=== PATIENT | female | born 1990 | race African-American/Black ===

== ENCOUNTER 2022-12-09 03:40 | Inpatient (IN) | payer BC ==
[2022-12-09] MEDS: LACTATED RINGERS 1,000 ML IV SCH ×3 (04:53→19:07)
[2022-12-09 05:54] LABS: Basophils % (A) 0 %; Eosinophils # (A) 0.1 k/uL (0-0.7); Eosinophils % (A) 1 %; HCT 35.8 % (34.0-46.0); HGB 11.9 gm/dL (11.4-16.0); Lymphocytes # (A) 0.8 k/uL (1.0-4.8); Lymphocytes % (A) 10 %; MCH 29.5 pg (25.0-35.0); MCHC 33.3 g/dL (31.0-37.0); MCV 88.6 fL (80.0-100.0); Monocytes # (A) 0.6 k/uL (0-1.0); Monocytes % (A) 8 %; Neutrophils % (A) 79 %; Platelet Count 212 k/uL (150-450); RBC 4.04 m/uL (3.80-5.40); WBC 7.6 k/uL (3.8-10.6)
--- NOTE | 2022-12-09 08:53 | US ---
EXAMINATION TYPE: US OB limited DATE OF EXAM: 12/09/2022 COMPARISON: NONE CLINICAL HISTORY: Bleeding, placenta previa. Bleeding. Rule out previa. EXAM PERFORMED: Transabdominal (TA) GESTATIONAL AGE / DATING Physician Established: (25 weeks/3 days) EDC: 06/14/2023 No growth performed on today?s study per ordering physician SURVEY PLACENTA: Anterior and appears to lie over internal os PREVIA: Complete Ultrasound evidence of abruption? No evidence of abruption. ROMAN: 16.5 cm Normal Ultrasound evidence of premature rupture of membranes? No HEART RATE: 136 bpm RHYTHM: Normal IMPRESSION: 1. Single intrauterine gestation. Current gestational age not measured. 2. Cardiac activity measures 136 bpm. 3. ROMAN appears normal. 4. Placenta previa. No abruption by ultrasound.
[2022-12-09 09:28] VITALS: RESP 16
[2022-12-09] MEDS ORDERED: BETAMET ACET-BETAMETH SOD PHOS 6 MG/ML MDV IM SCH (14:15)
--- NOTE | 2022-12-09 14:39 | P.HPOB ---
History of Present Illness H&P Date: 12/09/22 Chief Complaint: IUP at 25 weeks, vaginal bleeding This is a 32-year-old 1 para 0 at 35 weeks of that presents with complaints of an episode of bleeding overnight. Patient states she awoke went to the bathroom and noted bright red bleeding in her underwear. Patient presented to labor and delivery. Patient has a known low-lying placenta that was diagnosed at her 20 week anatomy scan. Patient denies cramping, contractions she does note good movement. 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 Patient states she is feeling well denies shortness of breath or dizziness upon ambulation. Past Medical History Past Medical History: No Reported History History of Any Multi-Drug Resistant Organisms: None Reported Additional Past Surgical History / Comment(s): [place] teeth Past Anesthesia/Blood Transfusion Reactions: No Reported Reaction Past Psychological History: No Psychological Hx Reported Smoking Status: Never smoker Past Alcohol Use History: None Reported Past Drug Use History: None Reported - Past Family History Father History Unknown: Yes Medications and Allergies Home Medications Medication Instructions Recorded Confirmed Type Dextroamphetamine/Amphetamine 10 mg PO DAILY 12/09/22 12/09/22 History [Adderall] Pnv No.175/Iron Fum/Folic Acid 1 tablet PO DAILY 12/09/22 12/09/22 History [ Complete Tablet] Allergies Allergy/AdvReac Type Severity Reaction Status Date / Time No Known Allergies Allergy Verified 12/09/22 03:53 Exam Osteopathic Statement: *. No significant issues noted on an osteopathic structural exam other than those noted in the History and Physical/Consult. Vital Signs Temp Pulse Resp BP Pulse Ox 12/09/22 04:28 97.3 F L 84 18 111/66 99 12/09/22 04:01 97.3 F L 97 18 127/70 98 Intake and Output 12/08/22 12/09/22 12/09/22 22:59 06:59 14:59 Other: # Voids 1 Weight 65.317 kg Targeted physical exam is performed and state and superintendent production a well-nourished well-developed female in no acute distress, breathing is nonlabored, heart has a regular rate and rhythm, abdomen is gravid, cervical exam is deferred given active bleeding with known low-lying placenta. heart tones are noted to be category 1 and appropriate for gestational age, no uterine activity is appreciated on toco Results Result Diagrams: 12/09/22 04:47 Abnormal Lab Results - Last 24 Hours (Table) 12/09/22 Range/Units 04:47 Lymphocytes # 0.8 L (1.0-4.8) k/uL Assessment and Plan (1) 25 to 26 weeks gestation of Current Visit: Yes Status: Acute Code(s): YYR3420 - SNOMED Code(s): 233228033 (2) Vaginal bleeding during Current Visit: Yes Status: Acute Code(s): O46.90 - ANTEPARTUM HEMORRHAGE, UNSPECIFIED, UNSPECIFIED TRIMESTER SNOMED Code(s): 95714667986773900 (3) Low lying placenta with hemorrhage, second trimester Current Visit: Yes Status: Acute Code(s): O44.52 - LOW LYING PLACENTA WITH HEMORRHAGE, SECOND TRIMESTER SNOMED Code(s): 798209663 Plan: 32-year-old at 25 weeks of gestation presented last evening with complaints of vaginal bleeding. Ultrasound was completed this morning for evaluation of placental location amniotic fluid index and estimated weight. Patient has had scant bleeding overnight. And is stable. We'll continue close observation. Await ultrasound results.
--- NOTE | 2022-12-09 14:46 | P.PN ---
Progress Note - Text Progress Note Date: 12/09/22 32 yo at 25 weeks of gestation with known complete placenta previa, that presented last evening with complaints of vaginal bleeding. She states she woke up to a feeling of wetness and upon going to the bathroom she noted bleeding in her underwear. She then presented to labor and delivery. No active bleeding was appreciated. Vital signs were noted to be stable. Patient was admitted for overnight observation. Patient has continued to have small amount of bright red bleeding throughout the day. Case was reviewed with Dr. Nam ([facility]), recommendations for continued observation at [facility]. Patient continues to be without complaints, she denies cramping or contractions. heart tones are noted to be reassuring for gestational age. Patient has received 1 dose of betamethasone Blood type is A+ Assessment IUP at 35 weeks of gestation, based on 13 week ultrasound consistent with 20 week ultrasound Complete placenta previa Vaginal bleeding Plan Transfer to [facility], [facility] Betamethasone to be given prior to transfer Case is reviewed with Dr. Zuñiga at [facility] and is accepting the transfer
[2022-12-09 15:30] VITALS: BP 120/68; PULSE 87; TEMP 97.6
== END 2022-12-09 19:20 | disposition short-term general hospital (02) | DRG 833 ==
LOC: FBPOP 03:40 → 4FBP 04:16
PROVIDERS: ADMIT Obstetrics & Gynecology Obstetrics; ATTEND Obstetrics & Gynecology Obstetrics
DX: O44.13 Complete placenta previa with hemorrhage, third trimester (principal); Z3A.35 35 weeks gestation of pregnancy; Z79.899 Other long term (current) drug therapy
CPT/HCPCS: 76815; 85025; 99215

== ENCOUNTER 2023-02-25 08:19 | Inpatient (IN) | payer BC, OTHER ==
[2023-02-23 11:47] VITALS: BMI 29.1
[2023-02-25] MEDS ORDERED: CITRIC ACID-SODIUM CITRATE 15 ML CUP PO ONE (08:36)
[2023-02-25] MEDS ORDERED: LACTATED RINGERS 1,000 ML IV ONE (08:36)
[2023-02-25] MEDS ORDERED: OXYTOCIN 10 UNIT/ML 1 ML VIAL IM PRN (08:36)
[2023-02-25] MEDS ORDERED: METHYLERGONOVINE 0.2 MG/ML 1 ML AMP IM PRN (08:36)
[2023-02-25] MEDS ORDERED: miSOPROStoL 200 MCG TAB PO PRN (08:36)
[2023-02-25] MEDS ORDERED: TRANEXAMIC 1,000 MG/100ML-NACL 1,000 MG in EMPTY BAG 1 BAG IV PRN (08:36)
[2023-02-25] MEDS ORDERED: CARBOPROST TROMETHAMINE 250 MCG/ML 1 ML AMP IM PRN (08:36)
[2023-02-25 09:00] LABS: Basophils % (A) 0 %; Eosinophils # (A) 0.1 k/uL (0-0.7); Eosinophils % (A) 1 %; HCT 38.3 % (34.0-46.0); HGB 12.8 gm/dL (11.4-16.0); Lymphocytes # (A) 0.9 k/uL (1.0-4.8); Lymphocytes % (A) 12 %; MCH 29.7 pg (25.0-35.0); MCHC 33.4 g/dL (31.0-37.0); MCV 88.9 fL (80.0-100.0); Mean Platelet Volume 7.8; Monocytes # (A) 0.5 k/uL (0-1.0); Monocytes % (A) 7 %; Neutrophils # (A) 5.6 k/uL (1.3-7.7); Neutrophils % (A) 79 %; Platelet Count 230 k/uL (150-450); RDW 13.8 % (11.5-15.5); WBC 7.1 k/uL (3.8-10.6)
[2023-02-25] MEDS: LACTATED RINGERS 1,000 ML IV SCH ×4 (09:17→20:36)
[2023-02-25] MEDS ORDERED: ONDANSETRON 4 MG/2 ML VIAL ONE (10:10)
[2023-02-25] MEDS ORDERED: MORPHINE SULFATE (PF) 0.3 MG/0.3 ML SYR ONE (10:10)
[2023-02-25] MEDS ORDERED: OXYTOCIN 30 UNITS/500 ML NS BAG IV ONE (10:10)
--- NOTE | 2023-02-25 11:11 | P.OP ---
Date of Procedure: 02/25/23 Preoperative Diagnosis: IUP @ 36 6/7 weeks, complete previa Postoperative Diagnosis: same plus transverse converted to breech presentation. Procedure(s) Performed: Primary low transverse section Anesthesia: spinal Surgeon: Julissa Ko Doll Repairer #1: Genaro Garcia Estimated Blood Loss (ml): 360 IV fluids (ml): 1,000 Urine output (ml): 150 (clear yellow) Pathology: other (placenta) Condition: stable Disposition: observation Indications for Procedure: 32-year-old with known complete previa. Operative Findings: Complete previa noted anterior and posterior uterine wall, viable female infant delivered at 1034, weight of 7 lbs. 0 oz. initially transverse presentation converted to breech for delivery. Description of Procedure: Patient was taken back to the operating suite where spinal anesthesia was found be adequate. She was prepped and draped in normal sterile fashion in the dorsal supine position. A Pfannenstiel skin incision was made the scalpel and carried through to the underlying layer of fascia. The fascia was incised in the midline and the incision was extended laterally. The superior aspect the fascial incision was then grasped with Winslow clamps, elevated and underlying rectus muscles dissected off sharply. The inferior aspect of the fascial incision was then grasped renee clamps, elevated and underlying rectus muscle was dissected off sharply. The rectus muscles were in the midline the peritoneum was identified and entered. The vesicouterine peritoneum was noted and the bladder flap was created using sharp and blunt dissection. The lower uterine segment was noted to be quite vascular with sinuses. The bladder blade was inserted to remove the bladder away from the operating field. Hysterotomy incision was made with the scalpel the placenta was encountered amniotomy was performed clear fluid was obtained. The infant was noted to be in a transverse presentation the sacrum was noted, and the was delivered in a standard breech fashion. The apical cord was doubly clamped and cut the infant was handed to awaiting RN. Patient did have a cord blood kit which was then used. A moderate amount of cord blood was obtained. The placenta was delivered manually and the uterus was externalized and cleared of all clots and debris. Uterus was noted to be firm at this time. The uterine incision was closed with 0 Vicryl in a running locked fashion. A second inverting suture was used to obtain hemostasis. On the right lateral uterine incision a small lung bleeding was noted therefore a [id number]-qp-wutan suture was used to obtain hemostasis. Small hematoma was noted and not increasing in size. The uterus then returned to the abdomen and the gutters were cleared of all clots and debris. Uterine incision was inspected hemostasis was noted Surgicel powder was placed along the hysterotomy incision. The peritoneum was loosely reapproximated. The rectus muscles were inspected and any points of bleeding were made hemostatic with the Bovie. The fascia was then closed with 0 Vicryl in a running fashion from one lateral edge the midline and the other lateral edge the midline. The subcutaneous tissue was irrigated found to be hemostatic. The skin was closed with 4-0 Vicryl in a circular fashion. Steri-Strips and sterile dressings were applied. The uterus was noted be firm and below the umbilicus. The Starr remains draining clear yellow urine. All counts were noted to be correct 2 at the end of the delivery. Patient and tolerated delivery well and are resting comfortably.
--- NOTE | 2023-02-25 11:12 | P.HPOB ---
History of Present Illness H&P Date: 02/25/23 Chief Complaint: IUP at 36-6/7 weeks, complete placenta previa This is a 32-year-old at 36-6/7 weeks that presents to labor and delivery for scheduled primary secondary to complete placenta previa. Patient has been receiving routine care with myself which is been complicated by complete previa. Patient did see maternal medicine medicine who recommended delivery from 36-37 weeks. Patient did receive betamethasone at 24 weeks secondary to an initial episode of vaginal bleeding. Patient has had multiple growth ultrasounds revealing a suggested large for gestational age infant. Patient notes good movement denies vaginal bleeding loss of fluid or contractions. On bloodwork this patient's blood type of A+, rubella status immune, hep Makenzie surface antigen negative, HIV negative, RPR is nonreactive. Review of Systems Constitutional: Denies chills, Denies fatigue, Denies fever Ears, nose, mouth and throat: Denies headache Cardiovascular: Denies leg edema Respiratory: Denies dyspnea Gastrointestinal: Denies constipation, Denies diarrhea, Denies nausea, Denies vomiting Genitourinary: Reports Past Medical History Past Medical History: No Reported History Additional Past Medical History / Comment(s): COMPLETE PLACENTA PREVIA History of Any Multi-Drug Resistant Organisms: None Reported Additional Past Surgical History / Comment(s): [place] teeth Past Anesthesia/Blood Transfusion Reactions: No Reported Reaction Past Psychological History: Anxiety, Depression Smoking Status: Never smoker Past Alcohol Use History: None Reported, Occasional Additional Past Alcohol Use History / Comment(s): NONE DURING Past Drug Use History: None Reported - Past Family History Father History Unknown: Yes Medications and Allergies Home Medications Medication Instructions Recorded Confirmed Type Pnv No.175/Iron Fum/Folic Acid 1 tablet PO DAILY 12/09/22 02/25/23 History [ Complete Tablet] Sertraline [Zoloft] 50 mg PO DAILY 02/23/23 02/25/23 History Allergies Allergy/AdvReac Type Severity Reaction Status Date / Time No Known Allergies Allergy Verified 02/25/23 08:36 Exam Osteopathic Statement: *. No significant issues noted on an osteopathic structural exam other than those noted in the History and Physical/Consult. Vital Signs Temp Pulse Resp BP Pulse Ox 02/25/23 08:59 97.1 F L 82 16 117/75 98 Intake and Output 02/24/23 02/25/23 02/25/23 22:59 06:59 14:59 Other: Weight 79.379 kg Targeted physical exam is performed and state in general this a well-nourished well-developed female in no acute distress, breathing is nonlabored, heart has regular rate and rhythm, abdomen is gravid and appropriate for gestational age, cervical exam is deferred, heart tones noted to be category 1 and uterine irritability is noted the monitor. Results Result Diagrams: 02/25/23 08:50 Abnormal Lab Results - Last 24 Hours (Table) 02/25/23 Range/Units 08:50 Lymphocytes # 0.9 L (1.0-4.8) k/uL Assessment and Plan (1) 36 to 37 weeks gestation of Current Visit: Yes Status: Acute Code(s): EHW1424 - SNOMED Code(s): 835059474 (2) Complete placenta previa nos or without hemorrhage, third trimester Current Visit: Yes Status: Acute Code(s): O44.03 - COMPLETE PLACENTA PREVIA NOS OR WITHOUT HEMOR, THIRD TRI SNOMED Code(s): 4131055 Plan: 32-year-old at 36-6/7 weeks that presents for primary secondary to complete previa. is reviewed in detail all questions are answered. Risks are reviewed including not limited to infection, bleeding, damage to bladder, bowel, or ureteric injury. Patient states understanding. We'll proceed with primary .
[2023-02-25] MEDS ORDERED: ONDANSETRON 4 MG/2 ML VIAL IVP PRN (13:29)
[2023-02-25] MEDS ORDERED: OXYTOCIN 30 UNITS/500 ML NS 30 UNIT in SALINE 1 500ML.BAG IV SCH (13:29)
[2023-02-25] MEDS ORDERED: diphenhydrAMINE 25 MG CAP PO PRN (13:29)
[2023-02-25] MEDS ORDERED: ZOLPIDEM 5 MG TAB PO PRN (13:29)
[2023-02-25] MEDS ORDERED: NALOXONE 0.4 MG/ML 1 ML VIAL IV PRN (13:29)
[2023-02-25] MEDS ORDERED: METOCLOPRAMIDE 5 MG/ML 2 ML VIAL IVP PRN (13:29)
[2023-02-25] MEDS ORDERED: SIMETHICONE 80 MG CHEWABLE PO PRN (13:29)
[2023-02-25] MEDS ORDERED: diphenhydrAMINE 50 MG/ML 1 ML VIAL IVP PRN ×2 (13:29)
[2023-02-25] MEDS ORDERED: diphenhydrAMINE 50 MG CAP PO PRN (13:29)
[2023-02-25] MEDS: ACETAMINOPHEN IV (For NPO) 1,000 MG in EMPTY BAG 1 BAG IVPB SCH ×2 (13:35→19:20)
[2023-02-25] MEDS: ACETAMINOPHEN TAB 500 MG TAB PO SCH ×2 (13:37→19:44)
--- NOTE | 2023-02-25 13:37 | P.ANPRN ---
Procedure Note - Anesthesia - Epidural/Spinal Spinal Time Out Performed: Yes Date of Procedure: 02/25/23 Location of Patient: OB Indication: Acute Post-Operative Pain, Requested by Surgeon Sedation Type: Sedate with meaningful contact maintained Preparation: Sterile Prep Position: Sitting Needle Guage: 25 Blood Aspirated: No Pain Paresthesia on Injection Noted: No Events: Uneventful and Well Tolerated (300 MCG of PF Morphine mixed with 1.4 ml of 0.75% Marcaine heavy)
[2023-02-25] MEDS: IBUPROFEN IV 800 MG in SODIUM CHLORIDE 0.9% 250 ML IV SCH (16:46)
[2023-02-25] MEDS: IBUPROFEN 600 MG TAB PO SCH ×2 (16:47→23:41)
[2023-02-25] MEDS: SENNOSIDES-DOCUSATE SODIUM 1 EACH TAB PO SCH (19:56)
[2023-02-26] MEDS: IBUPROFEN IV 800 MG in SODIUM CHLORIDE 0.9% 250 ML IV SCH ×2 (00:52→06:42)
[2023-02-26] MEDS: ACETAMINOPHEN TAB 500 MG TAB PO SCH ×4 (03:49→23:00)
[2023-02-26] MEDS: IBUPROFEN 600 MG TAB PO SCH ×3 (06:33→19:56)
[2023-02-26] MEDS: LACTATED RINGERS 1,000 ML IV SCH (06:41)
[2023-02-26 07:43] LABS: Basophils % (A) 0 %; Eosinophils # (A) 0.1 k/uL (0-0.7); Eosinophils % (A) 1 %; HCT 36.6 % (34.0-46.0); HGB 12.2 gm/dL (11.4-16.0); Lymphocytes # (A) 0.8 k/uL (1.0-4.8); Lymphocytes % (A) 6 %; MCH 30.1 pg (25.0-35.0); MCHC 33.3 g/dL (31.0-37.0); MCV 90.5 fL (80.0-100.0); Mean Platelet Volume 8.2; Monocytes # (A) 0.7 k/uL (0-1.0); Monocytes % (A) 5 %; Neutrophils # (A) 11.5 k/uL (1.3-7.7); Neutrophils % (A) 87 %; Platelet Count 152 k/uL (150-450); RBC 4.04 m/uL (3.80-5.40); RDW 13.7 % (11.5-15.5); WBC 13.1 k/uL (3.8-10.6)
[2023-02-26] MEDS ORDERED: SERTRALINE 50 MG TAB PO SCH (09:00)
--- NOTE | 2023-02-26 11:23 | P.PNOBGPC ---
Subjective - Subjective Patient reports: Reports appetite normal, Reports voiding normally, Reports pain well controlled, Reports ambulating normally : doing well Objective - Vital Signs Latest vital signs: Vital Signs Temp Pulse Resp BP Pulse Ox 02/26/23 08:00 97.8 F 85 14 108/68 02/26/23 03:52 98.0 F 81 16 110/69 97 02/26/23 00:00 97.6 F 78 16 107/67 98 02/25/23 20:00 97.6 F 82 16 112/64 95 02/25/23 15:33 98.2 F 90 16 107/65 98 02/25/23 13:06 65 16 105/64 98 02/25/23 12:36 71 16 101/59 99 02/25/23 12:06 72 16 106/62 99 02/25/23 11:51 76 16 101/62 69 L 02/25/23 11:36 66 16 111/59 98 Intake and Output 02/25/23 02/26/23 02/26/23 22:59 06:59 14:59 Output Total 600 400 Balance -600 -400 Output: Urine 600 400 Uretheral (Starr) 600 Other: Voiding Method Indwelling Catheter # Voids 1 - Exam Extremities: Present: normal Abdomen: Present: normal appearance, soft. Absent: distention, tenderness Incision: Present: normal, dry, intact Uterus: Present: normal, firm (The uterine fundus is tonic inappropriately tender below the umbilicus.) - Labs Labs: Abnormal Lab Results - Last 24 Hours (Table) 02/26/23 Range/Units 07:10 WBC 13.1 H (3.8-10.6) k/uL Neutrophils # 11.5 H (1.3-7.7) k/uL Lymphocytes # 0.8 L (1.0-4.8) k/uL Assessment and Plan (1) Status post section Current Visit: Yes Status: Acute Code(s): Z98.891 - HISTORY OF UTERINE SCAR FROM PREVIOUS SURGERY SNOMED Code(s): 184909528 Plan: Continue routine and postoperative care. I have encouraged the patient to ambulate in the hallways routinely. I would anticipate discharge home tomorrow pending no complications.
[2023-02-26] MEDS: SENNOSIDES-DOCUSATE SODIUM 1 EACH TAB PO SCH ×2 (16:03→21:06)
[2023-02-26] MEDS: PRENATAL VIT-IRON-FOLIC ACID 1 EACH TABLET PO SCH (19:59)
[2023-02-27] MEDS: IBUPROFEN 600 MG TAB PO SCH ×2 (05:05→10:31)
[2023-02-27] MEDS: ACETAMINOPHEN TAB 500 MG TAB PO SCH (07:23)
--- NOTE | 2023-02-27 07:42 | P.DS ---
Providers Date of admission: 02/25/23 08:19 Expected date of discharge: 02/27/23 Attending physician: Julissa Ko Primary care physician: Stated None - Discharge Diagnosis(es) (1) Status post section Current Visit: Yes Status: Acute (2) Complete placenta previa nos or without hemorrhage, third trimester Current Visit: Yes Status: Acute Hospital Course: The patient is a 32-year-old 3 para 1011 admitted at 36-6/7 weeks by good dating parameters. She is admitted for a primary low-transverse section secondary to a diagnosis of complete placenta previa. Her was otherwise uncomplicated though she did have several episodes of bleeding during the . She received betamethasone in standard fashion at 24 weeks initially. On labor and delivery, all signs were reassuring with category 1 heart rate tracing. She was taken to the operating room where she was delivered by primary low transverse section of a viable 7 lbs. 0 oz. baby girl with Apgars of 5 at 1 minute, 9 at 5 minutes and 9 at 10 minutes. Her postoperative course was unremarkable with vital signs being stable and her temperature was afebrile throughout. She was deemed stable for discharge on post operative day #2 was discharged home to follow-up in the office in 2 weeks' time for incision check and 6 weeks time routinely. Discharge instructions included calling for any significantly increased bleeding or foul-smelling lochia, significantly increased fever abdominal pain, perineal complaints, breast complaints, incisional complaints, or anything else that concerned her. She was additionally instructed to have nothing in the vagina for at least 6 weeks time to include intercourse and to do no heavy lifting over the same period of time. She is lastly instructed to do no driving until off of all pain medications or 2 weeks' time, whichever came first. She understood her instructions and agrees to follow up as noted above. Discharge medications included continued [id number] analgesic pain medications as well as a vitamin as she is opted to breast-feed. She was provided a prescription for [place] 5/325 mg, 1-2 by mouth every 6 hours when necessary pain, #20 dispensed with no refills. Maternal blood type is A+ and rubella status is immune. Discharge hemoglobin and hematocrit were 12.2 and 36.6 respectively. Procedures: #1. Primary low-transverse section Patient Condition at Discharge: Stable Plan - Discharge Summary Discharge Rx Participant: Yes New Discharge Prescriptions: No Action Pnv No.175/Iron Fum/Folic Acid [ Complete Tablet] 1 tablet PO DAILY Sertraline [Zoloft] 50 mg PO DAILY Discharge Medication List Pnv No.175/Iron Fum/Folic Acid [ Complete Tablet] 1 tablet PO DAILY 12/09/22 [History] Sertraline [Zoloft] 50 mg PO DAILY 02/23/23 [History] Follow up Appointment(s)/Referral(s): Julissa Ko DO [Doctor of Osteopathic Medicine] - 2 Weeks Discharge Disposition: HOME SELF-CARE
[2023-02-27] MEDS: PRENATAL VIT-IRON-FOLIC ACID 1 EACH TABLET PO SCH (08:32)
[2023-02-27] MEDS: SENNOSIDES-DOCUSATE SODIUM 1 EACH TAB PO SCH (08:32)
[2023-02-27 08:47] VITALS: BP 114/72; PULSE 79; RESP 16; TEMP 98
== END 2023-02-27 11:14 | disposition home or self-care (01) | DRG 788 ==
LOC: 4FBP 08:19
PROVIDERS: ADMIT Obstetrics & Gynecology Obstetrics; ATTEND Obstetrics & Gynecology Obstetrics
PROC: 10D00Z1 Extraction of Products of Conception, Low, Open Approach (ICD-10-PCS; principal; 2023-02-25 10:00)
DX: O44.03 Complete placenta previa NOS or without hemorrhage, third trimester (principal); O32.1XX0 Maternal care for breech presentation, not applicable or unspecified; F41.9 Anxiety disorder, unspecified; F32.A Depression, unspecified; O99.344 Other mental disorders complicating childbirth; Z37.0 Single live birth; Z3A.37 37 weeks gestation of pregnancy; Z79.899 Other long term (current) drug therapy
CPT/HCPCS: 85025; 86850; 86900; 86901

== ENCOUNTER 2024-09-25 06:53 | Inpatient (IN) | payer BC, OTHER ==
[2024-09-25] MEDS ORDERED: CARBOPROST TROMETHAMINE 250 MCG/ML 1 ML AMP IM PRN (07:24)
[2024-09-25] MEDS ORDERED: miSOPROStoL 200 MCG TAB PO PRN (07:24)
[2024-09-25] MEDS ORDERED: TRANEXAMIC 1,000 MG/100ML-NACL 1,000 MG in EMPTY BAG 1 BAG IV PRN (07:24)
[2024-09-25] MEDS ORDERED: OXYTOCIN 10 UNIT/ML 1 ML VIAL IM PRN (07:24)
[2024-09-25] MEDS ORDERED: TERBUTALINE 1 MG/ML VIAL SQ PRN (07:24)
[2024-09-25] MEDS ORDERED: METHYLERGONOVINE 0.2 MG/ML 1 ML AMP IM PRN (07:24)
[2024-09-25] MEDS ORDERED: miSOPROStoL 200 MCG TAB RECTAL PRN (07:24)
[2024-09-25] MEDS: LACTATED RINGERS 1,000 ML IV SCH (07:43)
[2024-09-25 07:53] LABS: Basophils % (A) 0 %; Eosinophils # (A) 0.1 k/uL (0-0.7); Eosinophils % (A) 2 %; HCT 40.1 % (34.0-46.0); HGB 13.4 gm/dL (11.4-16.0); Lymphocytes # (A) 1.1 k/uL (1.0-4.8); Lymphocytes % (A) 15 %; MCH 29.2 pg (25.0-35.0); MCHC 33.3 g/dL (31.0-37.0); MCV 87.6 fL (80.0-100.0); Mean Platelet Volume 8.5; Monocytes # (A) 0.5 k/uL (0-1.0); Monocytes % (A) 7 %; Neutrophils # (A) 5.7 k/uL (1.3-7.7); Neutrophils % (A) 75 %; Platelet Count 221 k/uL (150-450); RBC 4.58 m/uL (3.80-5.40); RDW 14.4 % (11.5-15.5); WBC 7.6 k/uL (3.8-10.6)
[2024-09-25] MEDS: OXYTOCIN 30 UNITS/500 ML NS 30 UNIT in SALINE 1 500ML.BAG IV SCH (09:16)
[2024-09-25] MEDS ORDERED: ROPIVACAINE 5 MG/ML 30 ML VIAL ONE (11:32)
[2024-09-25] MEDS ORDERED: SODIUM CHLORIDE 0.9% 250 ML BAG ONE (11:32)
[2024-09-25] MEDS ORDERED: fentaNYL (PF) 50 MCG/ML 5 ML AMP ONE (11:32)
[2024-09-25] MEDS ORDERED: diphenhydrAMINE 25 MG CAP PO PRN (14:29)
[2024-09-25] MEDS ORDERED: LANOLIN CREAM 1 GM TUBE TOPICAL PRN (14:29)
[2024-09-25] MEDS ORDERED: BENZOCAINE/MENTHOL SPRAY 1 GM/SPRAY AEROSOL TOPICAL PRN (14:29)
[2024-09-25] MEDS ORDERED: ZOLPIDEM 5 MG TAB PO PRN (14:29)
[2024-09-25] MEDS ORDERED: diphenhydrAMINE 50 MG CAP PO PRN (14:29)
[2024-09-25] MEDS ORDERED: SIMETHICONE 80 MG CHEWABLE PO PRN (14:29)
[2024-09-25] MEDS ORDERED: diphenhydrAMINE 50 MG/ML 1 ML VIAL IVP PRN ×2 (14:29)
[2024-09-25] MEDS ORDERED: HYDROCORTISONE 2.5% RECTAL CREAM 30 GM TUBE RECTAL PRN (14:29)
[2024-09-25] MEDS ORDERED: OXYTOCIN 30 UNITS/500 ML NS 30 UNIT in SALINE 1 500ML.BAG IV SCH (14:30)
[2024-09-25] MEDS: LIDOCAINE 0.5% (PF) 5 MG/ML (50 ML SDV) SQ PRN (14:32)
--- NOTE | 2024-09-25 14:33 | P.PROBDLV ---
Vaginal Delivery Note - . Vaginal Delivery Note: 34-year-old 4 para 2-0-1-2 that presented to labor and delivery for spontaneous rupture of membranes approximately 550 this morning. Patient has been receiving routine care which has been essentially uncomplicated. Patient has a prior history of a primary section secondary to placenta previa. Patient does desire trial of labor after . Patient has a history of with her first delivery of a spontaneous vaginal delivery. Patient was admitted to labor and delivery spontaneous rupture of membranes was confirmed. Pitocin augmentation of labor was begun. Patient did become uncomfortable and request epidural. Epidural was placed without difficulty by the anesthesia department. Patient had minimal relief of her discomfort from epidural. Patient made good progress toward complete. With excellent maternal effort patient began pushing and had a normal spontaneous vaginal delivery of a viable male at 1414, weight of 6 pounds 14 ounces Apgars of 9 and 9 at 1 and 5 minutes respectively. Umbilical cord was doubly clamped and cut. Cord blood banking kit was then opened and cord blood was obtained. Once the cord was noted to obed the needle was removed and cord blood was taken off of the field. Placenta was delivered spontaneously intact. This was noted to be firm and below the umbilicus. Inspection the patient's vaginal vault a right lateral vaginal laceration was appreciated this was injected with lidocaine and repaired with a dqklut-zs-pkmns suture of 3-0 Rapide. Hemostasis was noted after repair. A red rubber catheter was used to drain the bladder of approximately 100 cc of clear yellow urine. All counts were noted to be correct x 2. Patient and infant tolerated delivery well and are resting comfortably.
--- NOTE | 2024-09-25 14:33 | P.HPOB ---
History of Present Illness H&P Date: 09/25/24 Chief Complaint: IUP at 40 and 1 sevenths weeks, spontaneous rupture of memb shashi This is a 34-year-old 4 para 1-1-1-2 at 40 and 1 sevenths weeks that presents to labor and delivery with complaints of spontaneous rupture of membranes. Patient states her water broke around 5 AM. Patient states it was clear in nature. Patient has been receiving routine care which has been essentially uncomplicated. Patient has a history of 1 vaginal delivery, 1 section at term secondary to placenta previa, current Patient notes good movement, denies vaginal bleeding. Last ultrasound revealing and a estimated weight of 7 pounds 3 ounces On blood work this patient is a blood type of A+, rubella status immune, hepatitis B surface engine negative, HIV negative, RPR is nonreactive, hepatitis C is negative, grew beta strep cultures negative. Review of Systems Constitutional: Denies chills, Denies fatigue, Denies fever Ears, nose, mouth and throat: Denies headache Cardiovascular: Reports leg edema Respiratory: Denies dyspnea Gastrointestinal: Denies nausea, Denies vomiting Genitourinary: Reports Past Medical History Past Medical History: No Reported History Additional Past Medical History / Comment(s): COMPLETE PLACENTA PREVIA with previous History of Any Multi-Drug Resistant Organisms: None Reported Past Surgical History: Section Additional Past Surgical History / Comment(s): [place] teeth Past Anesthesia/Blood Transfusion Reactions: No Reported Reaction Past Psychological History: Anxiety, Depression Smoking Status: Never smoker Past Alcohol Use History: None Reported, Occasional Additional Past Alcohol Use History / Comment(s): NONE DURING Past Drug Use History: None Reported - Past Family History Father History Unknown: Yes Medications and Allergies Home Medications Medication Instructions Recorded Confirmed Type Pnv No.175/Iron Fum/Folic Acid 1 tablet PO DAILY 12/09/22 09/25/24 History [ Complete Tablet] Allergies Allergy/AdvReac Type Severity Reaction Status Date / Time No Known Allergies Allergy Verified 09/25/24 07:15 Exam Osteopathic Statement: *. No significant issues noted on an osteopathic structural exam other than those noted in the History and Physical/Consult. Intake and Output 09/24/24 09/25/24 09/25/24 22:59 06:59 14:59 Other: Weight 80.739 kg Targeted physical exam is performed this date in general this is a well- nourished well-developed female in no acute distress, breathing is noted to be unlabored, heart has a right great rhythm, abdomen is gravid, on cervical exam she is 2/50/-2 station, spontaneous rupture of membranes was confirmed with positive AmniSure. heart tones noted be category 1, contractions are irregular. Results Result Diagrams: 09/25/24 07:40 Assessment and Plan (1) Post-dates Current Visit: Yes Status: Acute Code(s): O48.0 - POST-TERM SNOMED Code(s): 02007689 (2) Desires vaginal after trial Current Visit: Yes Status: Acute Code(s): O34.219 - MATERNAL CARE FOR UNSP TYPE SCAR FROM PREVIOUS DEL SNOMED Code(s): 243051290 (3) Spontaneous rupture of membranes Current Visit: Yes Status: Acute Code(s): ILL9933 - SNOMED Code(s): 078336126 Plan: 34-year-old -1-1-2 at 40 and 1 sevenths weeks that presented with complaints of spontaneous rupture of membranes. Patient is counseled on m entation of labor with Pitocin. epidural when appropriate.
[2024-09-25] MEDS: IBUPROFEN 800 MG TAB PO SCH (16:01)
[2024-09-25] MEDS: SENNOSIDES-DOCUSATE SODIUM 1 EACH TAB PO SCH (19:49)
[2024-09-25] MEDS: ACETAMINOPHEN TAB 500 MG TAB PO SCH (19:59)
[2024-09-26 12:37] VITALS: RESP 19
--- NOTE | 2024-09-26 12:51 | P.DS ---
Providers Date of admission: 09/25/24 07:14 Expected date of discharge: 09/26/24 Attending physician: Julissa Ko Primary care physician: Stated None - Discharge Diagnosis(es) (1) Post-dates Current Visit: Yes Status: Acute (2) Desires vaginal after trial Current Visit: Yes Status: Acute (3) Spontaneous rupture of membranes Current Visit: Yes Status: Acute Hospital Course: 34-year-old 4 now para 3-0-1-3 that presented to labor and delivery with spontaneous rupture of membranes around 550 on 128. Patient had been receiving routine care which has been essentially uncomplicated. Patient does have a history of a primary with her last secondary to placenta previa. First delivery was a spontaneous vaginal delivery and she desires trial of labor after . Patient was admitted to labor and delivery spontaneous rupture of membranes was confirmed. Pitocin augmentation of labor was begun. Patient did become uncomfortable and request epidural. Epidural was placed without difficulty by the anesthesia department. Patient made good progress toward complete dilation. Once completely dilated patient pushed through category 2 heart tones and had a normal spontaneous vaginal delivery of a viable male infant at 1414, weight of 6 pounds 14 ounces. Loose nuchal was noted and reduced on the perineum. Cord blood banking kit was compl eted. Right lateral vaginal laceration was appreciated after delivery this was repaired with 3-0 Rapide in a [id number]-[id number] fashion. Patient's course has been uneventful. In this day #1 she is ambulating voiding without difficulty. She is tolerating a regular diet without nausea or vomiting. States her pain is well-controlled. She denies concerns and would like discharge home at 24 hours. Patient Condition at Discharge: Good Plan - Discharge Summary New Discharge Prescriptions: No Action Pnv No.175/Iron Fum/Folic Acid [ Complete Tablet] 1 tablet PO DAILY Discharge Medication List Pnv No.175/Iron Fum/Folic Acid [ Complete Tablet] 1 tablet PO DAILY 12/09/22 [History] Follow up Appointment(s)/Referral(s): Julissa Ko DO [Doctor of Osteopathic Medicine] - 11/05/24 8:45 am Patient Instructions/Handouts: Vaginal Delivery (DC), Vaginal Delivery (GEN) Activity/Diet/Wound Care/Special Instructions: No tub baths or intercourse until 6 weeks . Gnsi-gwl-mmqxmvy i buprofen 600 mg or 3 tablets every 6 hours as needed for pain. Patient is to follow-up in the office in 6 weeks for routine 6-week check. Discharge Disposition: HOME SELF-CARE
[2024-09-26 15:15] VITALS: BP 110/75; PULSE 88; TEMP 97.8
== END 2024-09-26 17:00 | disposition home or self-care (01) | DRG 806 ==
LOC: FBPOP 06:53 → 4FBP 07:14
PROVIDERS: ADMIT Obstetrics & Gynecology Obstetrics; ATTEND Obstetrics & Gynecology Obstetrics
PROC: 10E0XZZ Delivery of Products of Conception, External Approach (ICD-10-PCS; principal; 2024-09-25)
PROC: 0HQ9XZZ Repair Perineum Skin, External Approach (ICD-10-PCS; principal; 2024-09-25)
DX: O48.0 Post-term pregnancy (principal); O71.4 Obstetric high vaginal laceration alone; Z37.0 Single live birth; O34.219 Maternal care for unspecified type scar from previous cesarean delivery; Z3A.40 40 weeks gestation of pregnancy
CPT/HCPCS: 84112; 85025; 86850; 86900; 86901; 99213